=== PATIENT | female | born 1975 | race Caucasian/White ===

== ENCOUNTER 2018-03-07 11:29 | Emergency (ER) | payer OTHER ==
[~2018-03-07] VITALS: Ht 160 cm; Wt 128.8 kg
[~2018-03-07 11:29] MED LIST: ACETAMINOPHEN-1 EAC1 PO; CIPRO500 MG PO; IBUPROFEN 800800 M1 PO; KEFLEX500 M1 PO; NAPROSYN500 MG PO; NORCO 5-325 TA1 EACH PO; TESSALON PERLE100 MG PO; TRAMADOL 50 MG50 MG PO
[2018-03-07] MEDS ORDERED: NORCO 5-325 TA1 EACH PO (14:59)
[2018-03-07] MEDS ORDERED: NABUMETONE 750750 M1 PO (14:59)
[2018-03-07 15:22] VITALS: BP 143/68
== END 2018-03-07 15:22 | disposition home or self-care (01) ==
LOC: M.ERS 11:29
DX: S82.201A Unspecified fracture of shaft of right tibia, initial encounter for closed fracture (principal); F32.9 Major depressive disorder, single episode, unspecified; F41.9 Anxiety disorder, unspecified; Z87.442 Personal history of urinary calculi; X50.1XXA Overexertion from prolonged static or awkward postures, initial encounter; Y93.89 Activity, other specified; Y92.89 Other specified places as the place of occurrence of the external cause; Y99.8 Other external cause status

== ENCOUNTER 2018-09-26 06:58 | Inpatient (IN) | payer OTHER ==
[~2018-09-26] VITALS: Ht 160 cm; Wt 127.0 kg
--- NOTE | ~2018-09-26 | CON ---
[address] [address] CONSULTATION Name: RADHA SHORT Room: [address] IN .R.#: [id number] Admission: 09/26/18 Attend Phys: Catarina Vincent Discharge: Date of : 77 Report #: [id number] THIS REPORT FOR: //name// CC: CORI physician/PCP Christ Lara HISTORY OF PRESENT ILLNESS: This is a pleasant 42-year-old female with past medical history significant for anxiety, depression, and renal stones, who is presenting for evaluation of abdominal pain, nausea, vomiting and diarrhea since around 11:00 yesterday. The patient reports acute onset of nausea, vomiting and reports that she has thrown up every single time she had any food or water. She also reports abdominal pain located in the right side, which is diffuse and radiates up and down the right side of her abdomen. The patient also reports about 4-5 loose watery stools since yesterday. The patient denies similar episodes in the past. The patient also denies any recent travel or consuming undercooked food. The patient also reports associated fevers, chills, dizziness and lightheadedness. PAST MEDICAL HISTORY: Anxiety, depression, and renal stones. PAST SURGICAL HISTORY: Nonsignificant. SOCIAL HISTORY: The patient denies smoking, alcohol or recreational drug use. FAMILY HISTORY: The patient's mother had ovarian cancer. REVIEW OF SYSTEMS: A comprehensive 10-point review of systems is negative except for what was mentioned in the HPI. PHYSICAL EXAMINATION: VITAL SIGNS: Temperature 36.6, pulse rate 80, respirations 17, blood pressure 138/100. HEENT: Pupils are equal, round, reactive to light and accommodation. Mucous membranes are moist. There is no congestion. LUNGS: Clear to auscultation bilaterally. CARDIOVASCULAR: Rate and rhythm regular, S1, S2 present. ABDOMEN: Soft, mild tenderness to palpation in the right upper and right lower quadrant. No guarding or rigidity. EXTREMITIES: Warm and well perfused. There is no edema. LABORATORY DATA: Hemoglobin 13.4, hematocrit 40.4, WBC count 5.6, platelet count 329. Sodium 140, potassium 3.0, chloride 104, bicarbonate 27, BUN 15, creatinine 0.9, total bilirubin 0.6, AST 42, alkaline phosphatase 157. Abdominal ultrasound, suspected hepatic steatosis, otherwise unremark[place] [address] CONSULTATION Name: RADHA SHORT Room: [address]#: [id number] Admission: 09/26/18 Attend Phys: Catarina Vincent Discharge: Date of : 77 Report #: [id number] ASSESSMENT AND PLAN: This is a pleasant 42-year-old female with no significant past medical history. She has had nausea, vomiting, abdominal pain and diarrhea. I would check stool enteric pathogen and C. diff. This could be related to a nonspecific viral gastroenteritis, but the attempt is to rule out any possible treatable causes of this disease. If the patient has persistent symptoms after 48 hours and stool testing done is negative for infection, we can perform an EGD and colonoscopy to evaluate this further. Thank you for this consultation. Please do not hesitate to call or contact me if you have any questions. By: [id number] Rico MD /nt
--- NOTE | ~2018-09-26 | PROC ---
[address] [address] PROCEDURE REPORT Name: RADHA SHORT Room: [address]#: [id number] Admission: 09/26/18 Attend Phys: Catarina Vincent Discharge: 10/02/18 Date of : 77 Report #: [id number] THIS REPORT FOR: //name// For GI report, please see the Provation report in Perceptive 7 content. By: [id number] Records Staff [place] /ADIA
[~2018-09-26 06:58] MED LIST changes: +NABUMETONE 750750 M1 PO
[2018-09-26 07:04] VITALS: BP 144/106
[2018-09-26] MEDS ORDERED: [UNRECOGNIZED DRUG - REMARK] (07:08)
[2018-09-26] MEDS ORDERED: BLOOD PRESSURE MED (07:08)
[2018-09-26] MEDS ORDERED: ZOLOFT50 MG (07:08)
[2018-09-26] MEDS ORDERED: ESTRADIOL 1 MG T1 M1 PO (07:09)
[2018-09-26 07:37] LABS: ABSOLUTE BASOPHILS 0.1 thou/uL (0.0-0.2); ABSOLUTE LYMPHOCYTES 1.2 thou/uL (0.8-5.3); ABSOLUTE MONOCYTES 0.4 thou/uL (0.0-1.2); ABSOLUTE NEUTROPHILS 3.8 thou/uL (1.6-8.1); BASOPHILS 1.1 %; EOSINOPHILS 0.6 %; HEMATOCRIT 40.4 % (37.0-47.0); HEMOGLOBIN 13.4 gm/dL (12.0-15.0); LYMPHOCYTES 22.3 %; MCHC 33.2 g/dL (28.0-37.0); MCV 81.5 fL (80.0-100.0); MONOCYTES 7.9 %; MPV 8.1 fl. (7.2-11.1); NUCLEATED RBCS 0 /100WBC; PLATELET COUNT* 329 thou/uL (150-400); POLYS 68.1 %; RBC 4.95 mil/uL (4.20-5.00); RDW-CV 15.6 % (10.5-14.5); WBC 5.6 thou/uL (4.0-11.0)
[2018-09-26 08:03] LABS: CALCIUM 9.4 mg/dL (8.5-10.1)
[2018-09-26 08:07] LABS: ALBUMIN 3.8 g/dL (3.4-5.0); TOTAL BILIRUBIN 0.6 mg/dL (<0.1-1.0); TOTAL PROTEIN 9.1 g/dL (6.4-8.2)
[2018-09-26 08:08] LABS: POTASSIUM 2.4 mmol/L (3.5-5.1)
[2018-09-26] MEDS ORDERED: HYDROCHLOROTH12.5 M1 PO (10:02)
[2018-09-26] MEDS ORDERED: EFFEXOR XR75 MG PO (10:03)
[2018-09-26] MEDS ORDERED: EFFEXOR XR37.5 MG PO (10:04)
--- NOTE | 2018-09-26 11:36 | EKG ---
[place] [address] ELECTROCARDIOGRAM REPORT Name: RADHA SHORT Room: [place] [address] ADM IN [facility]#: [id number] Admission: 09/26/18 Attend Phys: Catarina Vincent Discharge: Date of : 77 Report #: [id number] THIS REPORT FOR: //name// [facility] ED Test Date: 2018-09-26 Test Time: 08:19:26 Pat Name: RADHA SHORT Department: Room: [facility] Gender: F Scallop Cutter: Brandon EDUARDO : 1975 Requested By: Adrien Hall Order Number: [id number] MD: Gregory Long Measurements Intervals [place] Rate: 73 P: LA: QRS: -48 QRSD: 137 T: -2 QT: 398 QTc: 439 Interpretive Statements NSR Ventricular premature complex Nonspecific IVCD with LAD Baseline wander in lead(s) V2 No previous ECG available for comparison Electronically Signed On 09-26-2018 11:36:44 CDT by Gregory Long [email or web address] <ELECTRONICALLY SIGNED> By: Gregory Long MD, [facility] 09/26/18 1136 8 8 Gregory Long MD, [facility] /EPI
[2018-09-26 12:53] VITALS: BP 114/77
[2018-09-26 13:00] VITALS: BP 138/100
[2018-09-26 13:48] LABS: URINE BILIRUBIN NEGATIVE (Negative); URINE BLOOD NEGATIVE (Negative); URINE CLARITY CLEAR; URINE COLOR YELLOW; URINE GLUCOSE-RANDOM NEGATIVE (Negative); URINE KETONES NEGATIVE (Negative); URINE LEUKOCYTES-REFLEX NEGATIVE (Negative); URINE NITRITE-REFLEX NEGATIVE (Negative); URINE PROTEIN NEGATIVE (Negative); URINE UROBILINOGEN 0.2 E.U./dl (0.2-1.0)
--- NOTE | 2018-09-26 15:24 | NUR ---
PT ADMITTED TO ROOM 215 AROUND 1300 FOR HYPOKALEMIA. PT GIVEN IV AND ORAL POTASSIUM IN ED. PT C/O MATHEW AND ABD PAIN AT ADMIT. PRN MORPHINE ADMINISTERED AND REPORTED EFFECTIVE. TOLERATING CLEAR LIQUID DIET. NO OTHER CONCERNS AT THIS TIME. CLWR. WCTM.
[2018-09-26 15:36] LABS: CREATININE 0.9 mg/dL (0.6-1.3)
[2018-09-26 15:58] VITALS: BP 116/50
[2018-09-26 20:00] VITALS: BP 152/81
--- NOTE | 2018-09-26 20:00 | NUR ---
RECEIVED REPORT AND ASSUMED CARE OF PT, ASSESSMENT COMPLETED. PT SITTING UP IN BED STATES SHE JUST DOESN'T FEEL GOOD. EXPLAINED RT SIDED ABD PAIN AND ALL THE WAY ACROSS. PT HOT AND FLUSHED, ROOM COOLED DOWN AND FAN GIVEN TO PT. BOYFRIEND STAYING AT BEDSIDE. TELEMETRY ON SHOWING SR. WILL MONITOR AND ASSIST NEEDED.
[2018-09-27 01:07] VITALS: BP 110/59
[2018-09-27 04:18] VITALS: BP 98/59
--- NOTE | 2018-09-27 06:19 | NUR ---
SLEPT WELL TONIGHT. IV PAIN MED GIVEN X1 AND EFFECTIVE FOR RT SIDED ABD PAIN. NO NAUSEA/VOMITING/DIARRHEA TONIGHT. POTASSIUM CONT TO BE LOW, IV SUPPLIMENT STARTED. HS GOALS OF REST AND SAFETY ACHIEVED. HOURLY ROUNDING OBSERVED.
[2018-09-27 08:02] VITALS: BP 96/63
--- NOTE | 2018-09-27 10:07 | NUR ---
Nutrition: class III morbid obesity noted. Wt down 9 lb from admit 7 months ago. 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 K+ mildly low, albumin WNL. IVF and other meds reviewed. Nsg noted no N/V/D last pm. On clear liquid diet, rec advance as medically appropriate. Low nutrition risk.
[2018-09-27 11:59] VITALS: BP 124/85
[2018-09-27 15:46] VITALS: BP 111/72
--- NOTE | 2018-09-27 17:46 | NUR ---
PT CARE ASSUMED AFTER REPORT. ASSESSMENT COMPLETE. SR/SB ON MONITOR. PT REPORTS CONTINUED NAUSEA. NO EMISIS TODAY. PT HAD CT ABD TODAY. PT GIVEN PRN PAIN MEDICATION PER HER REQUESTS. HAD 2 FORMED STOOLS. IVF INFUSING. SLOW TO PROGRESS TOWARDS GOALS.
[2018-09-27 20:00] VITALS: BP 116/79
[2018-09-28] VITALS: BP 104/54; BP 120/71
[2018-09-28 04:00] VITALS: BP 113/80
--- NOTE | 2018-09-28 05:54 | NUR ---
ASSUMED PATIENT CARE AT 1900. PATIENT ALERT AND ORIENTED TIMES FOUR. MINOR COMPLAINTS OF PAIN NOTED, CONTROLLED WITH IV PAIN MEDICATION. SOME COMPLAINTS OF NAUSEA NOTED, WITHOUT EMESIS. ON CLEAR LIQUIDS AT THIS TIME, TOLERATING OK. AIR EXPORT COORDINATOR AND HOURLY ROUNDING COMPLETED DOCUENTED.
--- NOTE | 2018-09-28 07:25 | NUR ---
CHANGE OF SHIFT, BEDSIDE REPORT GIVEN PATIENT SEEN AT BEDSIDE, IN BED ASLEEP ASSUMED PATIENT CARE
[2018-09-28 08:00] VITALS: BP 126/74
[2018-09-28 13:09] VITALS: BP 126/80
[2018-09-28 17:46] VITALS: BP 141/84
[2018-09-28 20:00] VITALS: BP 129/86
--- NOTE | 2018-09-29 07:25 | NUR ---
CHANGE OF SHIFT, BEDSIDE REPORT GIVEN PATIENT SEEN AT BEDSIDE, IN BED ASLEEP ASSUMED PATIENT CARE
[2018-09-29 08:00] VITALS: BP 128/79
[2018-09-29 13:42] VITALS: BP 127/89
[2018-09-29 16:00] VITALS: BP 137/72
[2018-09-29 20:00] VITALS: BP 138/87
--- NOTE | 2018-09-29 20:00 | NUR ---
RECEIVED REPORT AND ASSUMED CARE OF PT, ASSESSMENT COMPLETED. C/O MATHEW AND CONT TO HAVE ABD PAIN. DISCUSSED POSS COLONOSCOPY AND TEST THAT HAVE ALREADY BEEN COMPLETED. TELEMETRY ON SHOWING SR. WILL CONT TO MONITOR AND ASSIST NEEDED.
[2018-09-30] VITALS: BP 119/69
[2018-09-30 04:00] VITALS: BP 135/91
--- NOTE | 2018-09-30 05:54 | NUR ---
SLEPT FAIRLY WELL TONIGHT. GAIT STEADY TO AND FROM BR INDEPENDENTLY. IV PAIN MED GIVEN X2 AND EFFECTIVE. GAVE TORADOL X1 BUT DID NOT RELIEVE PAIN. DISCUSSED CLEAR LIQ DIET DUE TO POSS DR ORDERING BOWEL PREP. TELEMETRY CONT TO SHOW SR. NO CHANGE IN ASSESSMENT. HS GOALS OF REST AND SAFETY ACHIEVED. HOURLY ROUNDING OBSERVED.
[2018-09-30 08:00] VITALS: BP 121/70
[2018-09-30 11:19] LABS: ABSOLUTE EOSINOPHILS 0.1 thou/uL (0.0-0.7); ABSOLUTE LYMPHOCYTES 0.8 thou/uL (0.8-5.3); ABSOLUTE MONOCYTES 0.4 thou/uL (0.0-1.2); ABSOLUTE NEUTROPHILS 3.9 thou/uL (1.6-8.1); BASOPHILS 0.6 %; EOSINOPHILS 1.1 %; HEMATOCRIT 33.7 % (37.0-47.0); HEMOGLOBIN 11.1 gm/dL (12.0-15.0); LYMPHOCYTES 16.3 %; MCH 27.4 pg (26.0-34.0); MCHC 32.8 g/dL (28.0-37.0); MCV 83.3 fL (80.0-100.0); MONOCYTES 6.8 %; MPV 7.8 fl. (7.2-11.1); NUCLEATED RBCS 0 /100WBC; PLATELET COUNT* 267 thou/uL (150-400); POLYS 75.2 %; RBC 4.05 mil/uL (4.20-5.00); RDW-CV 15.4 % (10.5-14.5); WBC 5.2 thou/uL (4.0-11.0)
[2018-09-30 11:27] LABS: CALCIUM 8.7 mg/dL (8.5-10.1); CREATININE 0.7 mg/dL (0.6-1.3); POTASSIUM 4.4 mmol/L (3.5-5.1)
[2018-09-30 12:00] VITALS: BP 134/91
--- NOTE | 2018-09-30 15:12 | NUR ---
Pt is A&O. Resides at home with her SO. Independent and active. No DME. No hx of HH or SNF. Goal is home at dc. Following for disposition needs.
[2018-09-30 15:35] VITALS: BP 129/77
--- NOTE | 2018-09-30 17:00 | NUR ---
ASSUMED PT CARE REPORT RECEIVED FROM NURSE PT IS AOX4 SUFFERS FROM ABDOMINAL PAIN. ON RA AND O2 SATURATION IS ABOVE 95%. 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 UP AD PAUL. STOOL SAMPLE WAS SENT DOWN TO LAB TODAY. AWAITING RESULT. PT ATE REGULAR FOOD TODAY. MORPHINE, TORADOL AND ZOFRAN GIVEN THROUGHOUT SHIFT TO RELIEVE NAUSEA AND PAIN. ABX GIVEN. IV FLUID NS INFSING AT 100 PER HOUR. NO OTHER COMPLAINT BESIDE ABDOMINAL PAIN, NAUSEA, AND HEADACHE. WILL CONTINUE TO MONITOR PT
[2018-09-30 20:00] VITALS: BP 174/92
--- NOTE | 2018-09-30 20:00 | NUR ---
RECEIVED REPORT AND ASSUMED CARE OF PT, ASSESSMENT COMPLETED. PT COMPLAINTS OF GENERALIZED ABD PAIN, MATHEW AND NOT FEELING GOOD. AFTER CARING FOR PT FOR SEVERAL NIGHTS, OBSERVED THAT PT ONLY GETS OUT OF BED TO GO INTO THE BR AND BACK. CONVERSATION IS IN LOW TONELESS VOICE. ASKING FOR PAIN MED FOR ABD PAIN AND WILL GIVE. TELEMETRY ON SHOWING SR. BOYFRIEND AT BEDSIDE. WILL CONT TO MONITOR AND ASSIST NEEDED.
[2018-10-01] VITALS (7 sets, daily range): BP systolic 114–153; BP diastolic 73–93
--- NOTE | 2018-10-01 06:13 | NUR ---
SLEPT WELL BUT WHEN AWAKE ASKING FOR PAIN MED FOR ABD PAIN. ENCOURAGED PT TO BE UP MORE TODAY, SITTING IN CHAIR OR AMBULATING IN HALLWAY. NO CHANGE IN ASSESSMENT. HS GOALS OF REST AND SAFETY ACHIEVED.
[2018-10-01 11:26] LABS: HEMATOCRIT 33.4 % (37.0-47.0); HEMOGLOBIN 10.8 gm/dL (12.0-15.0); MCHC 32.4 g/dL (28.0-37.0); MCV 83.3 fL (80.0-100.0); MPV 7.4 fl. (7.2-11.1); RBC 4.01 mil/uL (4.20-5.00); RDW-CV 15.7 % (10.5-14.5); WBC 4.7 thou/uL (4.0-11.0)
--- NOTE | 2018-10-01 19:03 | NUR ---
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 ON RA. IVF INFUSING. GOOD APPETITE. MORPHINE GIVEN TO MONITOR PAIN. CONSENT FOR EGD SIGNED. WILL CONTINUE TO MONITOR PT
--- NOTE | 2018-10-02 05:16 | NUR ---
ASSUMED PT CARE AT 1930. NURSING ASSESSMENT COMPLETED AT START OF SHIFT. 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 HOURLY ROUNDING COMPLETED. PRN PAIN MEDICATIONS ADMINISTERED FOR ABDOMINAL PAIN, SEE EMAR FOR DOCUMENTATION. PT NPO FOR EGD THIS AM. CALL LIGHT WITHIN REACH.
[2018-10-02 06:27] VITALS: BP 124/88
[2018-10-02 07:40] VITALS: BP 124/78
[2018-10-02 10:55] VITALS: BP 124/78
[2018-10-02 11:49] VITALS: BP 144/71
--- NOTE | 2018-10-02 12:03 | NUR ---
PT A/O. TELE TRACKING SR T1AVB AND ALL VSS ON ROOM AIR. DENIES CP, SOA. C/O ABDOMINAL CRAMPING-MEDICATED PER EMAR. EGD TODAY- SEE REPORT. EDUCATED ON SAFETY AND PLAN OF CARE. PLEASE SEE ASSESSMENT FOR ADDITIONAL INFORMATION. WILL CONT TO MONITOR
[2018-10-02] MEDS ORDERED: PROTONIX40 M1 PO (12:08)
[2018-10-02] MEDS ORDERED: HYDROCODON-ACE1 EAC7 PO (12:14)
[2018-10-02] MEDS ORDERED: FLAGYL500 M1 PO (12:43)
[2018-10-02] MEDS ORDERED: CIPRO500 MG PO (12:44)
[2018-10-02] MEDS ORDERED: ZOFRAN ODT4 MG DISSOLVE (12:45)
[2018-10-02 12:50] VITALS: BP 144/71
[2018-10-02] MEDS ORDERED: PROBIOTIC1 EAC1 PO (12:54)
--- NOTE | 2018-10-04 11:11 | PATH ---
[address] [address] PATHOLOGY RPT PROCEDURE Name: GABBY REAL Room: [address] IN ..#: [id number] Admission: 09/26/18 Date of : [birth year] Discharge: 10/02/18 Report #: [id number] Path Case #: [id number] [facility] Accession Number: [id number] . 01 Material submitted: . stomach - GASTRIC BIOPSY FOR H. PYLORI . 01 Clinical history: . None provided . 02 Diagnosis: Gastric biopsy: - Mild nonspecific chronic gastritis, negative for Helicobacter pylori organisms and dysplasia. (ANAY:fani; 10/03/2018) . Special stain: H. pylori immuno MBR/10/03/2018 . 02 Electronically signed: . Bro Hardin MD, Pathologist NPI- [id number] . 01 Gross description: . Received in formalin labeled "Gabby Real, gastric biopsy, rule out H. pylori," is a single segment of madison soft tissue measuring 0.6 cm in maximum dimension. The specimen is entirely submitted in cassette A1. (TSD; 10/02/2018) TOB/TOB . 02 Pathologist provided ICD-10: K29.50 . 02 CPT . 898247, R40619 Specimen Comment: A courtesy copy of this report has been sent to Specimen Comment: [phone], . Specimen Comment: Report sent to / DR PACKER Performed at: [address], [place], [place] [id number] MD Edison Levy MD Phone: [phone] Performed at: 02 [facility] [address], [place], [place] [id number] MD Bro Hardin MD Phone: [phone]
== END 2018-10-02 14:50 | disposition home or self-care (01) | DRG 392 ==
LOC: M.ERS 06:58 → M.TBA-ER 08:48 → M.2W 08:48
PROVIDERS: Emergency Medicine Emergency Medical Services; Internal Medicine Gastroenterology; ADMIT Internal Medicine
PROC: 0DB68ZX Excision of Stomach, Via Natural or Artificial Opening Endoscopic, Diagnostic (ICD-10-PCS; principal; 2018-10-02)
DX: K52.9 Noninfective gastroenteritis and colitis, unspecified (principal); F32.9 Major depressive disorder, single episode, unspecified; F41.9 Anxiety disorder, unspecified; E87.6 Hypokalemia; K31.9 Disease of stomach and duodenum, unspecified; K25.9 Gastric ulcer, unspecified as acute or chronic, without hemorrhage or perforation; Z90.710 Acquired absence of both cervix and uterus; Z87.442 Personal history of urinary calculi; Z79.1 Long term (current) use of non-steroidal anti-inflammatories (NSAID); Z79.899 Other long term (current) drug therapy; Z88.1 Allergy status to other antibiotic agents; Z80.41 Family history of malignant neoplasm of ovary; Z82.49 Family history of ischemic heart disease and other diseases of the circulatory system

== ENCOUNTER 2018-10-14 15:34 | Inpatient (IN) | payer OTHER ==
[~2018-10-14] VITALS: Ht 160 cm; Wt 119.3 kg
--- NOTE | ~2018-10-14 | PROC ---
[address] [address] PROCEDURE REPORT Name: RADHA SHORT Room: [address] IN .R.#: [id number] Admission: 10/14/18 Attend Phys: Tha Munroe MD Discharge: Date of : 77 Report #: [id number] THIS REPORT FOR: //name// For GI report, please see the Provation report in Perceptive 7 content. By: [id number] Records Staff INDIRA /ADIA
[~2018-10-14 15:34] MED LIST changes: +BLOOD PRESSURE MED; +EFFEXOR XR37.5 MG PO; +EFFEXOR XR75 MG PO; +ESTRADIOL 1 MG T1 M1 PO; +FLAGYL500 M1 PO; +HYDROCHLOROTH12.5 M1 PO; +HYDROCODON-ACE1 EAC7 PO; +PROBIOTIC1 EAC1 PO; +PROTONIX40 M1 PO; +ZOFRAN ODT4 MG DISSOLVE; +ZOLOFT50 MG PO; +[UNRECOGNIZED DRUG - REMARK]
[2018-10-14 15:47] VITALS: BP 145/85
[2018-10-14 16:19] LABS: HEMATOCRIT 38.3 % (37.0-47.0); HEMOGLOBIN 12.8 gm/dL (12.0-15.0); MCH 26.9 pg (26.0-34.0); MCHC 33.4 g/dL (28.0-37.0); MCV 80.6 fL (80.0-100.0); MPV 7.8 fl. (7.2-11.1); NUCLEATED RBCS 0 /100WBC; PLATELET COUNT* 332 thou/uL (150-400); RBC 4.76 mil/uL (4.20-5.00); RDW-CV 15.7 % (10.5-14.5); WBC 9.5 thou/uL (4.0-11.0)
[2018-10-14 16:25] LABS: CREATININE 0.8 mg/dL (0.6-1.3); POTASSIUM 3.5 mmol/L (3.5-5.1)
[2018-10-14 16:29] LABS: ALBUMIN 3.7 g/dL (3.4-5.0); TOTAL BILIRUBIN 0.4 mg/dL (<0.1-1.0)
[2018-10-14 16:44] LABS: ABSOLUTE LYMPHOCYTES 0.4 thou/uL (0.8-5.3); ABSOLUTE MONOCYTES 0.4 thou/uL (0.0-1.2); ABSOLUTE NEUTROPHILS 8.7 thou/uL (1.6-8.1)
[2018-10-14 16:45] LABS: PLATELET ESTIMATE ADEQUATE
[2018-10-14 18:57] LABS: URINE BILIRUBIN NEGATIVE (Negative); URINE BLOOD TRACE (Negative); URINE CLARITY CLEAR; URINE COLOR YELLOW; URINE GLUCOSE-RANDOM NEGATIVE (Negative); URINE KETONES NEGATIVE (Negative); URINE LEUKOCYTES-REFLEX NEGATIVE (Negative); URINE NITRITE-REFLEX NEGATIVE (Negative); URINE PROTEIN NEGATIVE (Negative); URINE SPECIFIC GRAVITY <= 1.005 (1.005-1.030); URINE UROBILINOGEN 0.2 E.U./dl (0.2-1.0)
[2018-10-14 20:42] LABS: AMP/METHAMP Negative (Negative); BARBITURATES Negative (Negative); BENZODIAZEPINES POSITIVE (Negative); COCAINE Negative (Negative); METHADONE Negative (Negative); OPIATES POSITIVE (Negative); PCP Negative (Negative); THC Negative (Negative)
[2018-10-14 21:05] VITALS: BP 136/85
[2018-10-14 21:20] VITALS: BP 122/74; BP 125/78
[2018-10-15 04:00] VITALS: BP 129/77
[2018-10-15 08:00] VITALS: BP 124/65
[2018-10-15 09:07] LABS: INFLUENZA A ANTIGEN None Detected (None Detect); INFLUENZA B ANTIGEN None Detected (None Detect)
--- NOTE | 2018-10-15 10:20 | EKG ---
[place] [address] ELECTROCARDIOGRAM REPORT Name: RADHA SHORT Room: [address] ADM IN ..#: [id number] Admission: 10/14/18 Attend Phys: Tha Munroe MD Discharge: Date of : 77 Report #: [id number] THIS REPORT FOR: //name// [facility] ED Test Date: 2018-10-14 Test Time: 15:53:03 Pat Name: RADHA SHORT Department: Room: [address] Gender: F Referral And Information Aide: TDRANJANA : 1975 Requested By: Junior Burris Order Number: [id number] Reading MD: Gregory Long Measurements Intervals [place] Rate: 137 P: 72 GA: 148 QRS: 236 QRSD: 86 T: 23 QT: 286 QTc: 432 Interpretive Statements Sinus tachycardia Markedly posterior QRS axis Consider right ventricular hypertrophy Artifact in lead(s) II,III,aVF,V6 and baseline wander in lead(s) I,III,aVL,V1,V2,V3,V4,V5,V6 Compared to ECG 09/26/2018 08:19:26 Posterior QRS axis now present Ventricular premature complex(es) no longer present Intraventricular conduction delay no longer present Electronically Signed On 10-15-2018 10:20:24 CDT by Gregory Long [email or web address] <ELECTRONICALLY SIGNED> By: Gregory Long MD, [facility] 10/15/18 1020 1553 1553 Gregory Long MD, [facility] /EPI
[2018-10-15 16:43] VITALS: BP 121/71
[2018-10-15 20:23] VITALS: BP 133/79
[2018-10-16] VITALS: BP 120/74
[2018-10-16 05:38] LABS: ALBUMIN 2.8 g/dL (3.4-5.0); CALCIUM 8.9 mg/dL (8.5-10.1); CREATININE 0.9 mg/dL (0.6-1.3); TOTAL BILIRUBIN 0.3 mg/dL (<0.1-1.0); TOTAL PROTEIN 7.3 g/dL (6.4-8.2)
[2018-10-16 08:00] VITALS: BP 110/57
[2018-10-16 16:19] VITALS: BP 115/74
[2018-10-16 20:44] VITALS: BP 112/72
[2018-10-17 04:18] VITALS: BP 103/65
[2018-10-17 05:40] LABS: ABSOLUTE EOSINOPHILS 0.1 thou/uL (0.0-0.7); ABSOLUTE LYMPHOCYTES 1.1 thou/uL (0.8-5.3); ABSOLUTE MONOCYTES 0.5 thou/uL (0.0-1.2); BASOPHILS 0.5 %; EOSINOPHILS 2.4 %; HEMATOCRIT 34.8 % (37.0-47.0); LYMPHOCYTES 23.6 %; MCH 26.3 pg (26.0-34.0); MCHC 31.7 g/dL (28.0-37.0); MONOCYTES 11.4 %; MPV 8.5 fl. (7.2-11.1); NUCLEATED RBCS 0 /100WBC; POLYS 62.1 %; RBC 4.19 mil/uL (4.20-5.00); RDW-CV 16.1 % (10.5-14.5); WBC 4.8 thou/uL (4.0-11.0)
[2018-10-17 05:43] LABS: PLATELET COUNT* 242 thou/uL (150-400)
[2018-10-17 06:01] LABS: PREALBUMIN 15.3 mg/dL (18.0-35.7)
[2018-10-17 07:07] LABS: ALBUMIN 2.9 g/dL (3.4-5.0); CALCIUM 8.9 mg/dL (8.5-10.1); CREATININE 0.8 mg/dL (0.6-1.3); TOTAL BILIRUBIN 0.1 mg/dL (<0.1-1.0); TOTAL PROTEIN 6.9 g/dL (6.4-8.2)
[2018-10-17 07:10] LABS: POTASSIUM 4.2 mmol/L (3.5-5.1)
[2018-10-17 07:30] VITALS: BP 103/51
[2018-10-17 07:38] LABS: ESR (SEDRATE) 48 mm/hr (0-20)
[2018-10-17 12:06] VITALS: BP 110/61
[2018-10-17 20:27] VITALS: BP 131/78
[2018-10-18 04:31] VITALS: BP 125/67
[2018-10-18 08:15] VITALS: BP 128/76
[2018-10-18 15:44] VITALS: BP 125/78
[2018-10-18 20:00] VITALS: BP 145/79
[2018-10-19] VITALS: BP 135/88
[2018-10-19 10:36] VITALS: BP 127/59
[2018-10-19 16:00] VITALS: BP 143/95
[2018-10-19 20:00] VITALS: BP 147/65
[2018-10-20 04:00] VITALS: BP 121/73
[2018-10-20 05:09] LABS: HEMATOCRIT 35.8 % (37.0-47.0); HEMOGLOBIN 11.8 gm/dL (12.0-15.0); MCH 26.7 pg (26.0-34.0); MCHC 33.1 g/dL (28.0-37.0); MCV 80.8 fL (80.0-100.0); MPV 8.1 fl. (7.2-11.1); NUCLEATED RBCS 0 /100WBC; PLATELET COUNT* 295 thou/uL (150-400); RBC 4.44 mil/uL (4.20-5.00); RDW-CV 16.1 % (10.5-14.5); WBC 4.6 thou/uL (4.0-11.0)
[2018-10-20 06:00] LABS: ALBUMIN 3.3 g/dL (3.4-5.0); ALKALINE PHOSPHATASE 148 U/L (46-116); ANION GAP 11 mmol/L (7-16); BUN 12 mg/dL (7-18); CALCIUM 9.2 mg/dL (8.5-10.1); CHLORIDE 101 mmol/L (98-107); CO2 27 mmol/L (21-32); CREATININE 0.8 mg/dL (0.6-1.3); GLUCOSE 112 mg/dL (70-99); POTASSIUM 4.1 mmol/L (3.5-5.1); SGOT 42 U/L (15-37); SGPT 42 U/L (30-65); SODIUM 139 mmol/L (136-145); TOTAL BILIRUBIN 0.1 mg/dL (<0.1-1.0); TOTAL PROTEIN 7.5 g/dL (6.4-8.2)
[2018-10-20 06:04] LABS: ABSOLUTE LYMPHOCYTES 1.7 thou/uL (0.8-5.3); ABSOLUTE MONOCYTES 0.2 thou/uL (0.0-1.2); ABSOLUTE NEUTROPHILS 2.7 thou/uL (1.6-8.1); METAMYELOCYTES 1 %; PLATELET ESTIMATE ADEQUATE
[2018-10-20 06:44] LABS: ESR (SEDRATE) 35 mm/hr (0-20)
[2018-10-20 08:00] VITALS: BP 115/71
[2018-10-20 16:02] VITALS: BP 153/104
[2018-10-20 20:00] VITALS: BP 108/67
[2018-10-21 04:00] VITALS: BP 127/84
[2018-10-21 07:20] VITALS: BP 118/79
[2018-10-21 16:15] VITALS: BP 105/66
[2018-10-21 19:30] VITALS: BP 112/63
[2018-10-22 04:00] VITALS: BP 115/70
[2018-10-22 07:30] VITALS: BP 112/78
[2018-10-22 16:36] VITALS: BP 111/70
[2018-10-23 07:16] LABS: ALBUMIN 3.4 g/dL (3.4-5.0); CALCIUM 9.5 mg/dL (8.5-10.1); CREATININE 0.8 mg/dL (0.6-1.3); POTASSIUM 3.6 mmol/L (3.5-5.1); TOTAL BILIRUBIN 0.2 mg/dL (<0.1-1.0); TOTAL PROTEIN 8.1 g/dL (6.4-8.2)
[2018-10-23] MEDS ORDERED: FLUCONAZOLE 10100 MG PO (11:57)
[2018-10-23] MEDS ORDERED: TRANSDERM-SCOP1 EACH TRANSDERM (11:57)
[2018-10-23] MEDS ORDERED: FIRVANQ50 MG/1 ML PO (11:57)
[2018-10-23] MEDS ORDERED: ZOFRAN ODT4 MG DISSOLVE (11:57)
[2018-10-23] MEDS ORDERED: LIDOPATCH1 EACH TOP (11:57)
[2018-10-23] MEDS ORDERED: BENTYL 20 MG TA20 M1 PO (11:57)
[2018-10-23] MEDS ORDERED: HYDROCODON-ACE1 EAC7 PO (11:57)
[2018-10-23] MEDS ORDERED: ACIDOPHILUS1 EAC4 PO (11:57)
[2018-10-23 12:38] VITALS: BP 111/70
--- NOTE | 2018-10-24 12:09 | CON ---
[address] [address] CONSULTATION Name: RADHA SHORT Room: [address] IN .R.#: [id number] Admission: 10/14/18 Attend Phys: Tha Munroe MD Discharge: 10/23/18 Date of : 77 Report #: [id number] THIS REPORT FOR: //name// CC: Tha Munroe [facility] physician/PCP DICTATED BY: Leslye Flynn [facility] DATE OF SERVICE: 10/16/2018 PRIMARY CARE PHYSICIAN: Dr. Martin at [facility]. Please note at the time of this dictation, the patient was seen and physically examined by myself. REASON FOR CONSULTATION: Ongoing nausea, vomiting, abdominal pain, and diarrhea. HISTORY OF PRESENT ILLNESS: This is a 42-year-old female who presented to the Emergency Room after recently being discharged on 10/01/2018 for complaints of nausea, vomiting, diarrhea, and abdominal pain. She was seen earlier in the month for the same reason and underwent an EGD that showed nonerosive gastritis, nonbleeding erosive gastritis. She was sent home on negative for H. pylori and sent home on Protonix once a day, during that hospitalization, her diarrhea had stopped. However, she was sent home on Cipro and Flagyl upon discharge. Approximately 2 days prior to admission, she began having diarrhea again and had also noted a fever at home. She was unable to keep anything down either fluids or solids, prompting her to come back into the Emergency Room. ALLERGIES: KEFLEX AND LATEX. MEDICATIONS: From home include pantoprazole, hydrocodone. She had been on Cipro and Flagyl, Effexor, Zofran, probiotic, hydrochlorothiazide, estradiol, and Zoloft. PAST MEDICAL HISTORY: History of kidney stones, depression, anxiety, being worked up currently for lupus. PAST SURGICAL HISTORY: Negative. FAMILY HISTORY: Mother with history of ovarian cancer. SOCIAL HISTORY: Denies any alcohol, tobacco or illegal drug use. REVIEW OF SYSTEMS: Twelve-point review of systems is essentially negative except what [place] [address] CONSULTATION Name: RADHA SHORT Daryl Room: [address]#: [id number] Admission: 10/14/18 Attend Phys: Tha Munroe MD Discharge: 10/23/18 Date of : 77 Report #: [id number] PHYSICAL EXAMINATION: VITAL SIGNS: Temperature 36.5, pulse 68, respirations 14 and blood pressure 110/57. HEART: Regular rate and rhythm. LUNGS: Clear. ABDOMEN: Soft, positive bowel sounds in all 4 quadrants with generalized tenderness noted throughout. DIAGNOSTIC DATA: Abdominal x-ray was negative. CCK-PIPIDA showed 86%. CTA of the chest was negative for PE. LABORATORY DATA: GFR was 69. White count is 9.5, hemoglobin is 12.8, platelet count is 332. LFTs normal. Alkaline phosphatase is slightly elevated at 183. IMPRESSION: 1. Abdominal pain. 2. Diarrhea. 3. Positive Clostridium difficile. 4. Nausea and vomiting. 5. History of nonbleeding erosive gastritis from EGD on 10/02 of [address] Rico. 6. Family history, mother, ovarian cancer. PLAN: 1. Continue her vancomycin and Flagyl for her C. difficile. 2. We will add a scopolamine patch to help with her nausea and vomiting. 3. Continue her Protonix 40 mg daily. 4. May consider Bentyl if she has no improvement with the above medications. Thank you for allowing us to participate in this patient's care. Please do not hesitate to call with any questions in regard to this consult. <ELECTRONICALLY SIGNED> By: Minor Clayton DO 10/24/18 1209 1107 0044Minor Clayton DO /nt
--- NOTE | 2018-10-25 10:05 | PATH ---
[address] [address] PATHOLOGY RPT PROCEDURE Name: GABBY REAL Room: [address] IN [facility]#: [id number] Admission: 10/14/18 Date of : 77 Discharge: 10/23/18 Report #: [id number] Path Case #: [id number] [facility] Accession Number: [id number] . 01 Material submitted: . PART A: small bowel - SMALL BOWEL BIOPSY FOR CHRONIC DIARRHEA PART B: stomach - ANTRAL BIOPSY FOR H. PYLORI FOR EROSIVE GASTRITIS PART C: esophagus - ESOPHAGEAL BIOPSY AT 30CM SUSPECT HEMA PART D: colon - RANDOM COLON BIOPSY FOR CHRONIC DIARRHEA,CURRENT C.DIFF INFECT . 01 Clinical history: . A. Biopsy for chronic diarrhea B. Biopsy for H. pylori for erosive gastritis C. Suspect hema D. Biopsy for chronic diarrhea, recurrent C. diff infect, evaluate for possible microscopic colitis . 02 Diagnosis: A. Small bowel biopsy for chronic diarrhea: - Normal small intestinal/duodenal mucosa. . B. Antral biopsy for H. pylori/for erosive gastritis: - Mild nonspecific chronic antral gastritis, negative for Helicobacter pylori organisms and dysplasia. . C. Esophageal biopsy at 30 cm (suspect Hema): - Moderate chronic and active esophagitis compatible with reflux, negative for fungal elements. . D. Random colon biopsy for chronic diarrhea: - Mild active colitis, negative for granulomas, viral inclusions, and dysplasia. See comment. (ANAY:amanuel; 10/23/2018) QMS/10/25/2018 . 02 Comment: The random colon biopsies (D) show benign colonic mucosa with neutrophils scattered in the lamina propria in association with an increased lymphoplasmacytic infiltrate as well, which however, does not show basal concentration and is generally evenly distributed. Several crypt abscesses are noted and there is no inflammatory pseudomembrane seen nor are ischemic features or significant intraepithelial lymphocytosis present. A basally located hyperplastic lymphoid follicle is noted in one fragment. The histologic findings are most compatible with C. difficile or infectious colitis. (ANAY:amanuel; 10/23/2018) . [place] [address] PATHOLOGY RPT PROCEDURE Name: GABBY REAL Room: [address] DIS IN M.R.#: [id number] Admission: 10/14/18 Date of : 77 Discharge: 10/23/18 Report #: [id number] Path Case #: [id number] . Special stain: GMS on specimen C. . 02 Electronically signed: . Bro Hardin MD, Pathologist NPI- [id number] . 01 Gross description: . A. Received in formalin labeled "Gabby Real, A, small bowel biopsy for chronic diarrhea," are four segments of pale madison soft tissue measuring 0.6 x 0.5 x 0.2 cm in aggregate dimensions and ranging from 0.2 to 0.4 cm in maximum dimension. The specimen is submitted entirely in cassette A1. . B. Received in formalin labeled "Gabby Real B, antral biopsy for H. pylori for erosive gastritis," are two segments of madison-brown soft tissue measuring 0.3 x 0.2 x 0.1 cm and 0.4 x 0.2 x 0.2 cm in greatest dimensions. The specimen is submitted entirely in cassette B1. . C. Received in formalin labeled "Gabby Real C, esophageal biopsy at 30 cm suspect hema," are two segments of madison-brown soft tissue measuring 0.3 x 0.3 x 0.1 cm and 0.4 x 0.3 x 0.1 cm in greatest dimensions. The specimen is submitted entirely in cassette C1. . D. Received in formalin labeled "Gabby Real D, random colon biopsy for chronic diarrhea, current C. diff infect, evaluate for possible microscopic colitis," are six segments of madison-brown soft tissue measuring 0.8 x 0.6 x 0.2 cm in aggregate dimensions and ranging from 0.3 to 0.4 cm in maximum dimension. The specimen is submitted entirely in cassette D1. ([facility]; 10/22/2018) XDC/XDC . 02 Pathologist provided ICD-10: K29.50, K21.0, K52.9 . 02 CPT . 448644, 275425, 599365, 963575, 089806 Specimen Comment: A courtesy copy of this report has been sent to Specimen Comment: [phone], . Specimen Comment: Report sent to / DR MCCONNELL Performed at: [address], [place], [place] [id number] MD Edison Levy MD Phone: [phone] Performed at: 02 [facility] [address], [place], [place] [id number] MD Bro Hardin MD Phone: [phone]
== END 2018-10-23 14:38 | disposition home or self-care (01) | DRG 372 ==
LOC: M.ERS 15:34 → M.2W 19:39 → M.TBA-ER 19:39 → M.2W 21:29
PROVIDERS: Internal Medicine; Internal Medicine Gastroenterology; Nurse Practitioner Family; ADMIT Internal Medicine
PROC: 0DB58ZX Excision of Esophagus, Via Natural or Artificial Opening Endoscopic, Diagnostic (ICD-10-PCS; principal; 2018-10-21)
PROC: 0DB98ZX Excision of Duodenum, Via Natural or Artificial Opening Endoscopic, Diagnostic (ICD-10-PCS; principal; 2018-10-21)
PROC: 0DB68ZX Excision of Stomach, Via Natural or Artificial Opening Endoscopic, Diagnostic (ICD-10-PCS; principal; 2018-10-21)
PROC: 0DBE8ZX Excision of Large Intestine, Via Natural or Artificial Opening Endoscopic, Diagnostic (ICD-10-PCS; principal; 2018-10-21)
DX: A04.72 Enterocolitis due to Clostridium difficile, not specified as recurrent (principal); B37.81 Candidal esophagitis; F41.9 Anxiety disorder, unspecified; F32.9 Major depressive disorder, single episode, unspecified; K29.00 Acute gastritis without bleeding; Z88.1 Allergy status to other antibiotic agents; Z79.899 Other long term (current) drug therapy; Z87.442 Personal history of urinary calculi; Z80.41 Family history of malignant neoplasm of ovary; Z91.040 Latex allergy status